=== PATIENT | male | born 1935 | race Caucasian/White ===

== ENCOUNTER 2025-05-12 13:35 | Emergency (ER) | payer MEDICARE, OTHER, SELFPAY ==
[2025-05-12 13:37] VITALS: BP 167/61; PULSE 80; RESP 18; TEMP 36.6; O2SAT 96; BMI 32.1
--- NOTE | 2025-05-12 14:13 | EKG12_ITS ---
Test Reason : CP Blood Pressure : */* mmHG Vent. Rate : 66 BPM Atrial Rate : 66 BPM P-R Int : 184 ms QRS Dur : 104 ms QT Int : 402 ms P-R-T Axes : 27 238 43 degrees QTcB Int : 421 ms Normal sinus rhythm Right superior axis deviation Abnormal ECG Confirmed by Rubin Soler ([id number]), editorial intern FRANSISCO CANTU ([id number]) on 05/16/2025 6:17:49 AM Referred By: ELIDIA/LYUBOV Confirmed By: Rubin Soler
--- NOTE | 2025-05-12 14:17 | ED.VIS.CHEST ---
HPI History of Present Illness Chief Complaint: Chest Pain Informant: patient and family (Daughter) Narrative Narrative: 89-year-old male presenting to the emergency room with a chief complaint of chest pain. Patient states that yesterday he was bent over an electrical socket when he got up felt a aching sensation in his chest as well as in his chin. This lasted about 20 minutes and resolved. He was then fine until this morning when he had a second episode. Patient recently moved into the area. He notes that he has had prior CABG. He denies any associated shortness of breath or sweating. No nausea vomiting. No recent cough or fevers. [facility] Medical History Frequent UTI COPD (chronic obstructive pulmonary disease) GERD (gastroesophageal reflux disease) CHF (congestive heart failure) BPH (benign prostatic hyperplasia) Asthma Gout High cholesterol HTN (hypertension) Diverticulitis Breast cancer in male Breast cancer Arterial stent thrombosis Bypass graft stenosis Home Medications ?Medication ?Instructions ?Recorded ?Last Taken ?Type albuterol sulfate 90 mcg/actuation 1 inh inhalation Q6H 05/12/25 Unknown History breath activated powder inhaler (ProAir RespiClick) carboxymethylcellulose sodium 1 % 1 drp EACH EYE TID 05/12/25 Unknown History eye liquid gel drops (Refresh Liquigel) colchicine 0.6 mg capsule 0.6 mg PO .eod 05/12/25 Unknown History finasteride 5 mg tablet 5 mg PO DAILY 05/12/25 Unknown History fluticasone 250 mcg-salmeterol 50 1 inh inhalation BID 05/12/25 Unknown History mcg/dose blistr powdr for inhalation (Wixela Inhub) furosemide 20 mg tablet (Lasix) 20 mg PO DAILY 05/12/25 Unknown History wclfgr-cubmpdag-cnlvmep cap PO 05/12/25 Unknown History (pork)6,000-19,000-30,000 unit capsule,del rel (Creon) losartan 50 mg tablet (Cozaar) 25 mg PO .eod bp 05/12/25 Unknown History methenamine hippurate 1 gram tablet 1 g PO Q12H 05/12/25 Unknown History metoprolol tartrate 50 mg tablet 50 mg PO BID bp 05/12/25 Unknown History (Lopressor) multivitamin 1 tab PO DAILY 05/12/25 Unknown History simvastatin 80 mg tablet 40 mg PO QHS cholesterol 05/12/25 Unknown History tadalafil 20 mg tablet (Cialis) 40 mg PO QDAY PRN tinnitus 05/12/25 Unknown History tamsulosin 0.4 mg capsule 0.4 mg PO DAILY 05/12/25 Unknown History Allergy/AdvReac Type Severity Reaction Status Date / Time codeine Allergy Severe Anaphylaxis Verified 05/12/25 13:45 aspirin (ASA) Allergy Intermediate Rash Verified 05/12/25 13:45 Penicillins Allergy Unknown PT UNSURE Verified 05/12/25 13:45 OF REACTION Social History Smoking Status: Former smoker ROS ROS ED Constitutional Constitutional ED: Denies chills or weight loss Eyes Eyes: Denies change in vision or diplopia ENT ENT ED: Reports other Details: Chin pain see HPI ; Denies ear pain, rhinorrhea or sore throat Cardiovascular Cardiovascular: Reports as per HPI and chest pain; Denies orthopnea, palpitations or racing heartbeat Respiratory/Chest Respiratory/Chest: Denies cough, dyspnea or orthopnea Gastrointestinal Gastrointestinal: Denies abdominal pain, diarrhea, nausea or vomiting Genitourinary Genitourinary ED: Denies dysuria, hematuria or urinary frequency Musculoskeletal Musculoskeletal: Denies arthralgias or myalgias Integumentary Denies abscess or rash Neurologic Neurologic: Denies headache(s) or weakness Psychiatric Psychiatric: Denies anxiety, depression, suicidal ideation or suicidal thoughts Endocrine Endocrinology: Denies polydipsia, polyphagia or polyuria Allergic/Immunologic Allergic/Immunologic ED: Denies mouth swelling, tongue swelling or urticaria EXAM Physical Exam Const Vital Signs: 05/12/25 13:37 05/12/25 14:37 05/12/25 15:00 Temperature 97.8 F Temperature Source Oral Pulse Rate 80 64 58 L Respiratory Rate 18 16 20 H Blood Pressure 167/61 H 156/59 H 147/64 H Blood Pressure Mean 96 91 89 Pulse Ox 96 98 94 Oxygen Delivery Method Room Air 05/12/25 15:45 05/12/25 16:00 Temperature Temperature Source Pulse Rate 57 L 56 L Respiratory Rate 8 L 13 Blood Pressure 170/70 H 158/59 H Blood Pressure Mean 100 89 Pulse Ox 98 97 Oxygen Delivery Method Positive well nourished and well developed General Appearance ED: well developed and NAD HEENT Reports normocephalic, head/scalp atraumatic and moist mucous membranes Eyes PERRL and EOMs intact bilaterally Neck no lymphadenopathy, supple and no JVD Chest Wall Chest Narrative: Healed midline chest incision Resp normal respiratory effort and clear to auscultation bilaterally Cardio regular rate, regular rhythm and no murmurs GI normal to inspection, nondistended, normoactive bowel sounds and non-tender Palpation: soft Back/Spine no CVA tenderness and normal ROM Extremity normal to inspection General Extremety ED: Negative for edema General Extremity: Negative for edema Neuro oriented x3 and CN's II-XII intact bilaterally Sensorium / Orientation: alert Motor Exam: strength 5/5 throughout Psych mental status grossly normal Mood & Affect: Negative for depressed or tearful Skin no rashes or lesions noted and no wounds MDM MDM MDM Narrative Medical decision making narrative: Differential diagnosis includes unstable angina acute coronary syndrome cardiac dysrhythmia electrolyte abnormalities anemia dehydration EKG shows a normal sinus rhythm ventricular rate of [address] segments. White count 8.1 hemoglobin 13.1 platelet count of 292. BMP shows a BUN of 37 creatinine 1.76. Glucose of 115. Initial troponin is 53. Delta troponin is 54. My independent interpretation the chest x-ray is no acute process. Patient's had no events on the monitor. He has remained asymptomatic. At this point think the patient can be discharged home. Would recommend PCP follow-up. I can refer him to cardiology as he recently moved to the area. Return if worsening or concerns History & Record Review Discussion w/independent historian: Patient and Family Lab Data Attestation: I reviewed the patient's lab results. Labs: Laboratory Results - last 24 hr 05/12/25 05/12/25 14:00 15:53 WBC 8.1 RBC 4.86 Hgb 13.1 Hct 40.4 MCV 83.1 MCH 27.0 MCHC 32.4 RDW Std Deviation 44.3 H RDW Coeff of Damian 14.6 Plt Count 292 MPV 10.5 Immature Gran % (Auto) 1.400 H Neut % (Auto) 61.0 Lymph % (Auto) 23.0 [place] % (Auto) 11.9 H Eos % (Auto) 2.1 Baso % (Auto) 0.6 Absolute Neuts (auto) 5.0 Absolute Lymphs (auto) 1.87 Nucleated RBC % 0 Sodium 137 Potassium 4.6 Chloride 100 Carbon Dioxide 25.9 Anion Gap 11 BUN 37 H Creatinine 1.76 H Estim Creat Clear Calc 27.50 L Est GFR (MDRD) Non-Af 37 L BUN/Creatinine Ratio 21.3 H Glucose 115 H Calcium 9.8 Troponin T High Sens 53 H Troponin T Hi Sens 2 Hr 54 H* Radiography Diagnostic Testing: Clinical Impression(s) from Imaging Studies Chest X-Ray 05/12/25 14:22 IMPRESSION: Chronic interstitial changes in both lung saab without a superimposed acute pulmonary process Remote CABG Reading Location: [facility] EKG Initial EKG: Attestation: I personally reviewed and interpreted this EKG as follows: Comments: Normal sinus rhythm ventricular rate of 66 bpm Discharge Plan Triage Chief Complaint: Chest Pain ED Provider: Kumar Tenorio Dx/Rx/DC Orders Clinical Impression: Chest pain, Hypertension, Coronary artery disease, Status post coronary artery bypass graft Instructions: ED Chest Pain, Uncertain Cause Prescriptions: No Action metoprolol tartrate [Lopressor] 50 mg tablet 50 mg PO BID losartan [Cozaar] 50 mg tablet 25 mg PO .eod colchicine 0.6 mg capsule 0.6 mg PO .eod furosemide [Lasix] 20 mg tablet 20 mg PO DAILY simvastatin 80 mg tablet 40 mg PO QHS fluticasone propion-salmeterol [Wixela Inhub] 250-50 mcg/dose blister with device 1 inh inhalation BID tadalafil [Cialis] 20 mg tablet 40 mg PO QDAY PRN (Reason: tinnitus) Rx Instructions: administer approximately 30min before sexual activity; do not use more than 1 dose per 24hrs tamsulosin 0.4 mg capsule 0.4 mg PO DAILY finasteride 5 mg tablet 5 mg PO DAILY Creon 6,000-19,000 -30,000 unit capsule,delayed release(DR/EC) PO ProAir RespiClick 90 mcg/actuation aerosol powdr breath activated 1 inh inhalation Q6H methenamine hippurate 1 gram tablet 1 g PO Q12H carboxymethylcellulose sodium [Refresh Liquigel] 1 % drops, liquid gel 1 drp EACH EYE TID multivitamin Tablet 1 tab PO DAILY Primary Care Provider: Nikos Smith Referrals: Shashi Zamorano MD [Med Staff - Active Staff, Cardiology] Referral Note: for local cardiology Nikos Smith MD [Primary Care Provider, Internal Medicine] - 1 Week Print Language: Prydeinig
--- NOTE | 2025-05-12 14:22 | RAD_ITS ---
PROCEDURE: CHEST 1 VIEW (PORTABLE) 05/12/2025 REASON FOR EXAM: CHEST PAIN TECHNIQUE: Frontal view of the chest. COMPARISON: None FINDINGS: Hardware: EKG leads overlie the chest Heart: Remote CABG Lungs: Chronic interstitial changes in both lung saab without a superimposed acute pulmonary process Bones: Degenerative bony changes RAD/Chest 1 View (Portable) IMPRESSION: Chronic interstitial changes in both lung saab without a superimposed acute p ulmonary process Remote CABG Reading Location: [id number]
[2025-05-12 14:23] LABS: Hematocrit 40.4 % (40-54); Hemoglobin 13.1 g/dL (13.0-16.5); Immature Granulocytes Count 0.110 X10^3/uL (0.0-0.0); Mean Corp Hgb Conc 32.4 g/dL (32-36); Mean Corpuscular Volume 83.1 fL (80-94); Mean Platelet Vol. 10.5 fl (6.2-12.0); NRBC Flagged by Analyzer 0 % (0-5); Platelet Count 292 K/mm3 (150-450); RBC Distribution Width CV 14.6 % (11.6-14.6); RBC Distribution Width SD 44.3 fl (35.1-43.9); Red Blood Count 4.86 M/mm3 (4.6-6.2); White Blood Count 8.1 K/mm3 (4.4-11.0)
[2025-05-12 14:37] VITALS: BP 156/59; PULSE 64; RESP 16; O2SAT 98
[2025-05-12 15:00] VITALS: BP 147/64; PULSE 58; RESP 20; O2SAT 94
[2025-05-12 15:13] LABS: Anion Gap 11 (7-18); BUN 37 mg/dL (4-19); BUN/Creat Ratio 21.3 RATIO (10-20); Calcium,Total 9.8 mg/dL (7.6-11.0); Carbon Dioxide 25.9 mmol/L (20.0-29.0); Chloride 100 mmol/L (96-106); Estimated Creatinine Clearance 27.50 ml/min (50-250); Glucose 115 mg/dL (70-99); Potassium 4.6 mmol/L (3.5-5.1)
[2025-05-12 15:14] LABS: Troponin T High Sensitivity 53 ng/L (<=22)
[2025-05-12 15:45] VITALS: BP 170/70; PULSE 57; RESP 8; O2SAT 98
[2025-05-12 16:00] VITALS: BP 158/59; PULSE 56; RESP 13; O2SAT 97
[2025-05-12 16:24] LABS: Troponin T High Sens 2 HR 54 ng/L (<=22)
[2025-05-12 16:32] VITALS: BP 174/67; PULSE 64; RESP 18; TEMP 36.6; O2SAT 95
== END 2025-05-12 16:55 | disposition home or self-care (01) ==
LOC: ED 14:27
PROVIDERS: Emergency Provider Emergency Medicine; PCP Internal Medicine; Visit Provider Emergency Medicine
DX: R07.89 Other chest pain (principal); I11.0 Hypertensive heart disease with heart failure; I50.9 Heart failure, unspecified; J44.9 Chronic obstructive pulmonary disease, unspecified; I25.10 Atherosclerotic heart disease of native coronary artery without angina pectoris; K21.9 Gastro-esophageal reflux disease without esophagitis; N40.0 Benign prostatic hyperplasia without lower urinary tract symptoms; M10.9 Gout, unspecified; E78.00 Pure hypercholesterolemia, unspecified; Z95.1 Presence of aortocoronary bypass graft; Z85.3 Personal history of malignant neoplasm of breast; Z79.51 Long term (current) use of inhaled steroids; Z87.19 Personal history of other diseases of the digestive system; Z79.899 Other long term (current) drug therapy; Z87.891 Personal history of nicotine dependence
CPT/HCPCS: 71045; 80048; 84484; 85025; 93005; 99285